=== PATIENT | female | born 1945 | race Two or more races ===

== ENCOUNTER 2018-12-02 06:50 | Emergency (ER) | payer MEDICARE ==
[~2018-12-02] VITALS: Ht 157.5 cm; Wt 57.2 kg
[2018-12-02] MEDS ORDERED: IV NS 0.9% 1,000 ML BAG IV ONE (07:00)
--- NOTE | 2018-12-02 07:00 | NUR ---
BIB [facility] FROM HOME. PT IS LETHARGIC, DOESN NOT RESPOND WHEN TALKED TO. BREATHING EVEN AND UNLABORED. C/O ALTER MENTAL STATUS. FAMILY REPORTS THAT SHE WOKE UP THIS MORNING DISORIENTED, URINATED HER SELF AND VOMITTED DURING SLEEP. FAMILY ALSO REPORTED THAT SHE HAD HAD WITNESSED SEIZURE WHICH WAS SAME HOW SHE HAS BEEN HAVING THEM D/T BRAIN TUMOR. TO ER BED 9. PLACED ON MONITOR. MD AT BEDSIDE FOR EVAL.
--- NOTE | 2018-12-02 07:05 | NUR ---
BLOOD DRAWN AND GIVEN TO LAB
--- NOTE | 2018-12-02 07:13 | NUR ---
EKG AT BEDSIDE
[2018-12-02 07:21] LABS: BASOPHILS # (AUTO) 0.2 /CMM (0.0-0.2); BASOPHILS % (AUTO) 1.7 % (0.0-2.0); HEMATOCRIT 35 % (33-45); HEMOGLOBIN 12.4 g/dL (11.5-14.8); LYMPHOCYTES # (AUTO) 0.4 /CMM (0.8-4.8); LYMPHOCYTES % (AUTO) 3.7 % (20.0-44.0); MEAN CORPUSCULAR HGB CONC 35 g/dl (31.0-36.0); MEAN CORPUSCULAR VOLUME 89 fL (82-100); MONOCYTES # (AUTO) 0.5 /CMM (0.1-1.30); MONOCYTES % (AUTO) 4.7 % (2.0-12.0); NEUTROPHILS # (AUTO) 9.3 /CMM (1.8-8.9); NEUTROPHILS % (AUTO) 89.9 % (43.0-81.0); PLATELET COUNT (AUTO) 197 /CMM (150-450); RED BLOOD CELL COUNT(AUTO) 3.92 MIL/uL (4.0-5.2); WHITE BLOOD COUNT (AUTO) 10.3 K/uL (4.3-11.0)
[2018-12-02] MEDS ORDERED: ASPI-1152 PO (07:23)
[2018-12-02] MEDS ORDERED: SIMV20TA6 PO (07:23)
[2018-12-02] MEDS ORDERED: LEVE500T20 PO (07:23)
[2018-12-02] MEDS ORDERED: CHOL20004 PO (07:23)
--- NOTE | 2018-12-02 07:24 | NUR ---
PT BEING WHEELED TO CT ON [facility]
--- NOTE | 2018-12-02 07:31 | NUR ---
PT BACK FROM CT SCAN
--- NOTE | 2018-12-02 07:37 | NUR ---
REPORT GIVEN TO DANY VELASQUEZ FOR [facility]
--- NOTE | 2018-12-02 07:38 | NUR ---
REPORT RECEIVED FROM LUIS SAENZ FOR [facility]
--- NOTE | 2018-12-02 07:40 | NUR ---
PT WAKES UP VIA VERBAL STIMULI BUT DOES NOT RESPOND, HOOKED TO MONITOR, VSS. WILL CONTINUE TO MONITOR, KEPT WARM AND COMFORTABLE. FAMILY AT BEDSIDE
[2018-12-02 07:41] LABS: SERUM AMMONIA < 10 umol/L (11-32)
[2018-12-02 07:48] LABS: ALANINE AMINOTRANSFERASE 21 U/L (12-78); ALBUMIN 3.2 g/dL (3.4-5.0); ALKALINE PHOSPHATASE 77 U/L (46-116); ASPARTATE AMINOTRANSFERASE 23 U/L (15-37); BILIRUBIN,DIRECT 0.1 mg/dL (0.0-0.2); BILIRUBIN,TOTAL 0.7 mg/dL (0.2-1.0); CALCIUM, SERUM 8.6 mg/dL (8.5-10.1); CARBON DIOXIDE 29 mmol/L (21-32); CHLORIDE 88 mmol/L (98-107); CREATININE 0.6 mg/dL (0.6-1.3); GLUCOSE 148 mg/dL (74-106); SODIUM SERUM 122 mmol/L (136-145); TOTAL PROTEIN, SERUM 6.5 g/dL (6.4-8.2); UREA NITROGEN, BLOOD 13 mg/dL (7-18)
[2018-12-02 07:49] LABS: ALCOHOL, BLOOD < 3 mg/dL (0-0)
--- NOTE | 2018-12-02 07:54 | NUR ---
URINE SAMPLE COLLECTED VIA IN AND OUT CATHETER, SENT SPECIMEN SENT TO LAB
[2018-12-02 08:17] LABS: APPEARANCE,URINE Clear (CLEAR); BILIRUBIN,URINE Negative (NEGATIVE); BLOOD, URINE Negative Ery/uL (NEGATIVE); COLOR,URINE Yellow (YELLOW); KETONES,URINE Negative (NEGATIVE); LEUKOCYTE ESTERASE ,URINE Negative (NEGATIVE); NITRITE, URINE Negative (NEGATIVE); PROTEIN,URINE Negative (NEGATIVE); UGLUCOSE Negative (NEGATIVE); UROBILINOGEN,URINE 0.2 EU/dL (0.2)
[2018-12-02 08:19] LABS: THYROID STIMULATING HORMONE 0.786 uIU/mL (0.358-3.74)
--- NOTE | 2018-12-02 08:52 | NUR ---
PAGED [facility] -- COUNTER CASER IS DR IGNACIO
--- NOTE | 2018-12-02 08:57 | NUR ---
DR ENGLISH ON THE PHONE TALKING TO DR KUO.
[2018-12-02] MEDS ORDERED: IV Sodium Chloride 3% 500 ML 100 ML IV ONE (09:30)
[2018-12-02] MEDS ORDERED: DEXAMETHASONE SOD PHOSPHATE 10 MG/ML VIAL IV ONE (09:30)
[2018-12-02] MEDS ORDERED: LEVETIRACETAM (500MG) 1,000 MG in IV NS 0.9% 100 ML IV SCH (09:30)
--- NOTE | 2018-12-02 09:30 | NUR ---
PICC LINE ETA 1HR.
[2018-12-02] MEDS ORDERED: DEXAMETHASONE SOD PHOSPHATE 10 MG/ML VIAL ONE (09:33)
--- NOTE | 2018-12-02 09:47 | NUR ---
TEXTED DR. MAY FOR MRI APPROVAL.
--- NOTE | 2018-12-02 10:26 | NUR ---
TELEPHONE CONSENT OBTAINED FROM DAUGHTER KENDALL PERLA FOR PICC LINE INSERTION, CO-SIGNED BY BRICE LEYVA RN.
--- NOTE | 2018-12-02 10:32 | NUR ---
PICC LINE NURSE AT BEDSIDE
--- NOTE | 2018-12-02 11:02 | NUR ---
SPOKE TO CHRIS AT [facility]. PT IS GOING TO ROOM [id number]. CALL [phone] EX [phone]
--- NOTE | 2018-12-02 11:10 | NUR ---
CALLED [facility] FOR ALS TRANSFER. ETA 60 MIN. TRIP# [phone]
--- NOTE | 2018-12-02 11:14 | NUR ---
SPOKE TO NANCY AT [facility] TO INFORM HER THAT THE ETA FOR THE AMBULANCE WILL BE 60 MIN
[2018-12-02] MEDS ORDERED: MIDAZOLAM HCL 2 MG/2ML VIAL ONE (11:53)
[2018-12-02] MEDS ORDERED: MIDAZOLAM HCL 2 MG/2ML VIAL IV ONE (12:00)
[2018-12-02 12:15] LABS: CALCIUM, SERUM 8.6 mg/dL (8.5-10.1); CARBON DIOXIDE 23 mmol/L (21-32); CHLORIDE 91 mmol/L (98-107); CREATININE 0.6 mg/dL (0.6-1.3); GLUCOSE 137 mg/dL (74-106); POTASSIUM 3.7 mmol/L (3.5-5.1); SODIUM SERUM 125 mmol/L (136-145); UREA NITROGEN, BLOOD 9 mg/dL (7-18)
--- NOTE | 2018-12-02 12:26 | NUR ---
SPOKE TO CHRIS, SHE SPOKE TO HER DIE TRIPPER TO FIX THE SITUATION ABOUT THE BED. SHE WILL ADVISE WHEN SHE HAS MORE INFORMATION.
[2018-12-02] MEDS ORDERED: IV Sodium Chloride 3% 500 ML 500 ML IV ONE (12:30)
--- NOTE | 2018-12-02 12:35 | NUR ---
1205: ASSISTED PT GOING TO MRI
--- NOTE | 2018-12-02 13:24 | NUR ---
SPOKE TO NANCY AT [facility]. SASCHA MCLEAN IS WORKING ON FINDING A BED.
--- NOTE | 2018-12-02 13:56 | NUR ---
CALLED DR ENGLISH AND LEFT A MESSAGE FOR DR TO DR HINES
--- NOTE | 2018-12-02 14:20 | NUR ---
[facility]IP GAVE BED ASSIGNMENT. 4541-1. GIVE REPORT TO [phone] EX [phone]
--- NOTE | 2018-12-02 14:23 | NUR ---
NEW ETA FOR [facility] IS [id number]
--- NOTE | 2018-12-02 15:09 | NUR ---
REPORT GIVEN TO ANTONIO SAENZ OF ICU [facility]
[2018-12-02] MEDS ORDERED: HALOPERIDOL LACTATE INJ 5 MG/ML VIAL IV ONE (15:30)
--- NOTE | 2018-12-02 15:36 | NUR ---
[facility]AC PERIPHERAL IV LINE INFILTRATED, IV REMOVED. NO BLEEDING NOTED.
[2018-12-02] MEDS ORDERED: HALOPERIDOL LACTATE INJ 5 MG/ML VIAL ONE (16:14)
[2018-12-02 16:44] VITALS: BP 121/58
--- NOTE | 2018-12-02 16:51 | NUR ---
Patient discharged to [facility] in stable condition. PROVIDED WITH COPY OF DOCUMENTS DURING PATIENTS STAY IN EMERGENCY DEPT. CD COPY OF IMAGES GIVEN. PT WILL BE TRANSFERRED TO [facility]. [place] AT BEDSIDE.
== END 2018-12-02 16:56 | disposition short-term general hospital (02) ==
LOC: ER 06:55
DX: G93.40 Encephalopathy, unspecified (principal); G93.6 Cerebral edema; E87.1 Hypo-osmolality and hyponatremia; G40.909 Epilepsy, unspecified, not intractable, without status epilepticus; E78.00 Pure hypercholesterolemia, unspecified; Z90.710 Acquired absence of both cervix and uterus; Z79.82 Long term (current) use of aspirin; Z79.899 Other long term (current) drug therapy
CPT/HCPCS: 36415; 36569; 70450; 70551; 71045 ×2; 80048 ×2; 80076; 80305; 80307; 81001; 82140; 83605; 83935 ×2; 84300; 84443; 84484; 85025; 85730; 87040 ×2; 87081; 87086; 93005; 96361; 96365; 96375; 99291; C1751; J1100; J1630; J1953; J2250; J3490 ×2; J7030 ×2; 81000-TC; G0480